=== PATIENT | male | born 2000 | race Caucasian/White ===

== ENCOUNTER 2025-06-26 19:21 | Inpatient (IN) ==
[2025-06-26] MEDS: SODIUM CHLORIDE 0.9% 1,000 ML IV SCH (19:41)
--- NOTE | 2025-06-26 19:43 | Emergency Department Note ---
Impression & Plan Acute hypotension, Diarrhea, Abdominal pain, Vomiting, Acidosis, lactic, Hypoxia ED Provider Note NAME: KYLER ALVARADO AGE: 24 SEX: M : 2000 ARRIVES VIA: Ambulance INFORMANT: Patient ED PROVIDER(S): Timmy Schaffer DO CHIEF COMPLAINT: Abdominal pain, nausea, vomiting HPI: Patient is a 24-year-old male who presents ER for periumbilical abdominal pain associate with nausea and vomiting. He notes this started just prior to arrival. He is having persistent diarrhea now. He notes when the vomiting started he started having chest pain as well shortness of breath. Denies any dysuria, urgency or frequency. No other exacerbating or remitting factors. Patient denies diabetes, hypertension, hyperlipidemia, CAD, history of sudden at a young age, and smoking. Patient denies swelling of calves, recent trips, history of immobilization or recent surgery, prior history of DVT, hemoptysis, and history of malignancy. ADDITIONAL HISTORY OBTAINED: Per HPI Chronic Medical/Social Conditions Affecting Care: Per HPI PAST MEDICAL HISTORY:See Below PAST SURGICAL HISTORY:See Below FAMILY HISTORY:See Below SOCIAL HISTORY:See Below HOME MEDICATIONS:See Below ALLERGIES:See Below VITALS:See Below PHYSICAL EXAMINATION: GENERAL: Sitting up in bed, alert, pale appearing, disheveled EYE EXAM: normal conjunctiva. OROPHARYNX: no exudate, no erythema, lips, buccal mucosa, and tongue normal and mucous membranes are moist NECK: supple, no nuchal rigidity, no adenopathy, non-tender LUNGS: Clear to auscultation. Normal chest wall mechanics HEART: no murmurs, S1 normal and S2 normal ABDOMEN: abdomen soft, non-tender, normo-active bowel sounds, no masses, no rebound or guarding. UPPER EXTREMITIES: upper extremities are grossly normal. Radial pulses are equal bilaterally LOWER EXTREMITIES: No pitting edema. Calves are equal bilaterally NEURO EXAM: Normal sensorium, cranial nerves II-XII grossly intact, normal speech, no gross weakness of arms, no gross weakness of legs. MEDICAL DECISION MAKING: Patient is a 24-year-old male who presents to the ER found to be hypotensive with systolic pressure of 80 and heart rate in the 130s. IV was established and blood work was obtained. Labs showed no significant leukocytosis or anemia. D- dimer was negative and BMP with a mild hypokalemia at 3.4 as well as a bicarb of 19 and a gap of 19. This is likely explained by the acidosis from the elevated lactic acid. LFTs and bilirubin was fairly unremarkable. Troponin was negative. Pro-Mickey 0.07. UA was clean. Patient dropped his pulse ox several times while in the ER. He was placed on 2 L nasal cannula. With the chest pain and shortness of breath although a negative D-dimer CT angio was obtained of the chest and was unremarkable. There is no overt signs of failure. He was given 3 L of IV fluids. I did give him a dose of IV Zosyn. On last reevaluation he did complain of diffuse muscle cramping and a CK was added on. I discussed case with the hospitalist for admission. Patient was seen evaluated by general surgery while here in the ER and they note they will reevaluate in the morning but do not believe that this is appendicitis at this time. Consults/Care Managements Discussions: Per [facility] Triage Nursing notes reviewed. Limited review of prior medical records performed Vital Signs: reviewed and remarkable for hypotension and tachycardia Differential diagnosis: Differential diagnoses includes but is not limited to gastritis, peptic ulcer disease, GERD, gallbladder disease, pancreatitis, small bowel obstruction, appendicitis, diverticulitis, hernia, urinary tract infection, torsion, [/ectopic (if female)], perforation, trauma, infectious. ER treatment provided: See below Diagnostics interpreted by me include EKG and cardiac monitoring as listed below: -Cardiac Monitoring: An order was placed for continuous cardiac monitoring. The monitor shows a rate of 120 with sinus rhythm. -ECG: Sinus tachycardia rate of 119 Normal axis No PVCs QTc 450 -Laboratory studies:Interpreted by me as stated above in MDM and shown below. Imaging studies: Xrays: As interpreted by me: Portable AP upright 1 view of the chest shows no focal infiltrate CTs show: CTA of the chest and abdomen pelvis showed air-fluid levels and a distended appendix but no inflammatory changes. Procedures:none Critical Care: I have personally spent 45 minutes of critical care time in the direct management of this patient. This includes bedside care, interpretation of diagnostic studies, and testing, discussion with consultants, patient, and family members, and other required patient management activities. This 45 minutes is in excess of all separately billable procedures. Past Med/Surg History Problem List (Updated 06/26/25 @ 23:24 by Timmy Schaffer DO) Hypoxia (Acute) Acidosis, lactic (Acute) Vomiting (Acute) Abdominal pain (Acute) Diarrhea (Acute) Acute hypotension (Acute) Social History Smoking Status: Never smoker Preferred Language: Kazakh Feels Safe at Home: Yes Allergies Allergies Allergy/AdvReac Type Severity Reaction Status Date / Time No Known Allergies Allergy Unverified 06/26/25 22:00 Home Meds Home Medications Medication Instructions Recorded Confirmed tirzepatide 10 mg/0.5 mL 5 mg subcut 2XWK 06/26/25 06/26/25 subcutaneous pen injector (Arminda) Results & Data (ED) Vital Signs Vital Signs - 24 hr 06/26/25 19:25 06/26/25 19:35 06/26/25 19:36 Temperature 36.7 C Temperature Source Temporal Artery Scan Pulse Rate 135 H 122 H 110 H Pulse Rate from SpO2 Sensor 113 H Respiratory Rate 16 18 Respiratory Effort / Characteristics Non-Labored Spontaneous Respiratory Depth Normal Respiratory Pattern Regular Blood Pressure 87/50 L 120/84 Blood Pressure Mean 62 96 Pulse Oximetry 98 100 Oxygen Delivery Method Room Air Sepsis Recent Fever Within 48 Hours No Sepsis New/Unexplained Change in Mental Status N/A Sepsis Action Taken by Nursing Physician Notified 06/26/25 20:00 06/26/25 20:03 06/26/25 20:24 Temperature Temperature Source Pulse Rate 96 H 102 H Pulse Rate from SpO2 Sensor 97 H 101 H Respiratory Rate 17 14 Respiratory Effort / Characteristics Respiratory Depth Respiratory Pattern Blood Pressure 109/71 106/78 Blood Pressure Mean 83 87 Pulse Oximetry 98 95 96 Oxygen Delivery Method Room Air Sepsis Recent Fever Within 48 Hours Sepsis New/Unexplained Change in Mental Status Sepsis Action Taken by Nursing 06/26/25 20:30 06/26/25 21:06 06/26/25 21:15 Temperature Temperature Source Pulse Rate 103 H 105 H Pulse Rate from SpO2 Sensor 99 H 104 H Respiratory Rate 14 16 Respiratory Effort / Characteristics Respiratory Depth Respiratory Pattern Blood Pressure 121/73 109/56 L 107/67 Blood Pressure Mean 81 65 76 Pulse Oximetry 100 97 Oxygen Delivery Method Sepsis Recent Fever Within 48 Hours Sepsis New/Unexplained Change in Mental Status Sepsis Action Taken by Nursing 06/26/25 21:30 06/26/25 21:51 Temperature Temperature Source Pulse Rate 106 H 108 H Pulse Rate from SpO2 Sensor 109 H 108 H Respiratory Rate 21 23 Respiratory Effort / Characteristics Respiratory Depth Respiratory Pattern Blood Pressure 103/55 L 94/62 L Blood Pressure Mean 71 73 Pulse Oximetry 95 95 Oxygen Delivery Method Sepsis Recent Fever Within 48 Hours Sepsis New/Unexplained Change in Mental Status Sepsis Action Taken by Nursing Laboratory Data 06/26/25 19:55 06/26/25 19:55 Lab Results 06/26/25 06/26/25 06/26/25 Range/Units 19:55 21:06 21:46 WBC 9.02 (4.8-10.8) K/ul RBC 5.41 (4.70-6.10) M/uL Hgb 15.4 (14.0-18.0) g/dl Hct 45.5 (42.0-52.0) % MCV 84.1 (80.0-100.0) fL MCH 28.5 (25.0-34.0) pg MCHC 33.8 (32.0-36.0) g/dL RDW Std Deviation 38.7 (36.4-46.3) fL RDW Coeff of French 12.7 (11.5-14.5) % Plt Count 175 (130-400) K/uL MPV 11.3 (9.4-12.4) fL Immature Gran % (Auto) 0.2 % Neut % (Auto) 84.1 % Lymph % (Auto) 7.4 % Roosevelt % (Auto) 6.1 % Eos % (Auto) 1.9 % Baso % (Auto) 0.3 % Neut # (Auto) 7.58 H (1.40-6.50) K/uL Lymph # (Auto) 0.67 L (1.20-3.40) K/uL Roosevelt # (Auto) 0.55 (0.11-0.59) K/uL Eos # (Auto) 0.17 (0.00-0.50) K/uL Baso # (Auto) 0.03 (0.00-0.20) K/uL Immature Gran # (Auto) 0.02 (0.01-0.20) K/uL D-Dimer 430 (0-500) ug/L FEU Sodium 137 (136-145) mmol/L Potassium 3.4 L (3.5-5.1) mmol/L Chloride 99 (98-107) mmol/L Carbon Dioxide 19 L (21-32) mmol/L Anion Gap 19 H (3-11) BUN 19 (6-23) mg/dl Creatinine 1.19 (0.6-1.4) mg/dl Est Cr Clr Drug Dosing 98.8 ml/min eGFR 87.48 BUN/Creatinine Ratio 16.0 (10-20) Glucose 121 H (70-99(Fasting)) mg/dl Lactate 4.3 H* 1.2 (0.4-2.0) mmol/L Calcium 9.6 (8.6-10.3) mg/dl Magnesium 1.3 L (1.7-2.4) mg/dl Total Bilirubin 1.8 H (0.2-1.0) mg/dl Direct Bilirubin 0.3 H (0-0.2) mg/dl AST 17 (13-39) U/L ALT 14 (7-52) U/L Alkaline Phosphatase 58 (34-104) U/L Troponin I High Sens 3.6 (0-20) pg/ml Total Protein 7.8 (6.0-8.3) gm/dl Albumin 4.6 (3.4-5.0) gm/dl Procalcitonin 0.07 (0-0.5) ng/ml Urine Color Yellow Urine Appearance Clear (Clear) Urine pH 5.5 (4.5-7.5) Ur Specific Bowlus 1.039 H (1.000-1.030) Urine Protein Negative (Negative) Urine Glucose (UA) Negative (Negative) Urine Ketones 2+ H (Negative) Urine Blood Negative (Negative) Urine Nitrite Negative (Negative) Urine Bilirubin Negative (Negative) Urine Urobilinogen Negative (Negative) Ur Leukocyte Esterase Negative (Negative) Urine Comment Administered Medications Discontinued Medications Sodium Chloride (Nss) 1,000 mls @ 999 mls/hr IV .Q1H1M PEREZ Stop: 06/26/25 21:45 Last Infusion: 06/26/25 22:20 Dose: Infused Documented By: Admin: 06/26/25 21:16 Dose: 999 mls/hr Documented By: Infusion: 06/26/25 20:42 Dose: Infused Documented By: Admin: 06/26/25 19:41 Dose: 999 mls/hr Documented By: BARBARA Sodium Chloride (Nss) 1,000 mls @ 999 mls/hr IV .Q1H1M ONE Stop: 06/26/25 22:54 Last Admin: 06/26/25 22:20 Dose: 999 mls/hr Documented By: CHRISTIAN Ioversol (Optiray 320 100ml) 93 ml IV ONCE ONE Stop: 06/26/25 20:43 Last Admin: 06/26/25 20:42 Dose: 93 ml Documented By: MAYTE Ioversol (Optiray 320 125ml) 120 ml IV ONCE ONE Stop: 06/26/25 22:40 Last Admin: 06/26/25 22:39 Dose: 120 ml Documented By: MAYTE Ondansetron HCl (Ondansetron Inj 2 Mg/Ml 2 Ml Vial) 4 mg IV NOW STA Stop: 06/26/25 22:18 Last Admin: 06/26/25 22:19 Dose: 4 mg Documented By: CHRISTIAN Imaging Data Radiologist's Impression: Abdomen/Pelvis CT 06/26/25 19:38 Exam(s): CT ABDOMEN + PELVIS With Contrast IV Amt: 93ml EXAM: CT Abdomen and Pelvis With Intravenous Contrast CLINICAL HISTORY: mid abd pain n/v. TECHNIQUE: Axial computed tomography images of the abdomen and pelvis with intravenous contrast. CTDI is 20.52 mGy and DLP is 1039.39 mGy-cm. Automated exposure control was utilized for the study. A dose lowering technique was utilized adhering to the principles of ALARA. CONTRAST: Patient received 93ml of IV contrast COMPARISON: No relevant prior studies available. FINDINGS: Lung bases: Unremarkable. No mass. No consolidation. ABDOMEN: Liver: Unremarkable. No mass. Gallbladder and bile ducts: Unremarkable. No calcified stones. No ductal dilation. Pancreas: Unremarkable. No mass. No ductal dilation. Spleen: Unremarkable. No splenomegaly. Adrenals: Unremarkable. No mass. Kidneys and ureters: Unremarkable. No solid mass. No hydronephrosis. Stomach and bowel: The stomach is mildly distended with fluid and gas. No gastric mucosal thickening. No evidence for focal high-grade bowel obstruction. Nonspecific fluid-filled small bowel loops in the pelvis without dilation. There is prominent fluid throughout the colon. No significant stool burden or colonic wall thickening. No diverticulitis. PELVIS: Appendix: There are appendicoliths noted in the proximal appendix with the largest measuring 7.8 mm diameter by 9.2 mm in length. Distal to the appendicolith, the appendix is borderline prominent in size, measuring 8 mm in diameter but there is gas throughout the distal appendix. No definite periappendiceal inflammatory changes. Bladder: Unremarkable. No mass. Reproductive: Unremarkable as visualized. ABDOMEN and PELVIS: Intraperitoneal space: Unremarkable. No free air. No significant fluid collection. Bones/joints: No acute fracture. No dislocation. Soft tissues: Unremarkable. Vasculature: Unremarkable. No abdominal aortic aneurysm. Lymph nodes: Unremarkable. No enlarged lymph nodes. IMPRESSION: 1. There are appendicoliths noted in the proximal appendix with the largest measuring 7.8 mm diameter by 9.2 mm in length. Distal to the appendicolith, the appendix is borderline prominent in size, measuring 8 mm in diameter but there is gas throughout the distal appendix. No definite periappendiceal inflammatory changes. The appearance is somewhat indeterminate. Subtle acute appendicitis is difficult to entirely exclude. Please correlate with clinical and laboratory findings. 2. No evidence for focal high-grade bowel obstruction. Nonspecific fluid-filled small bowel loops in the pelvis without dilation. There is prominent fluid throughout the colon. No significant stool burden or colonic wall thickening. No diverticulitis. The appearance suggests enterocolitis with possible diarrheal disease. Electronically signed by: Mt Murdock MD 06/26/25 21:48 PM Chest X-Ray 06/26/25 19:39 HISTORY: Sepsis TECHNIQUE: Portable AP radiograph of the chest. COMPARISON: None. FINDINGS: ekg monitor tech leads overlie the chest. No focal lung consolidation. No pneumothorax or pleural effusion. Normal heart size. Left-sided aortic arch. Midline trachea.No acute osseous abnormality. The included upper abdomen is unremarkable. IMPRESSION: No acute cardiopulmonary findings. Electronically signed by Kyler Paniagua 06-26-2025 8:35 PM Chest CTA 06/26/25 22:12 Exam(s): CTA CHEST IV Amt: 120ml EXAM: CT Chest With Intravenous Contrast CLINICAL HISTORY: hypoxic. TECHNIQUE: Axial computed tomographic images of the chest with intravenous contrast. CTDI is 18.42 mGy and DLP is 719 mGy-cm. Automated exposure control was utilized for the study. A dose lowering technique was utilized adhering to the principles of ALARA. COMPARISON: No relevant prior studies available. FINDINGS: Limitations: There is diffuse respiratory artifact, which degrades image quality throughout the examination. Pulmonary arteries: Accounting for limitations with diffuse respiratory artifact, there is no definite evidence for pulmonary embolism. Several distal subsegmental pulmonary artery segments are of limited to nondiagnostic quality. Aorta: No acute findings. No thoracic aortic aneurysm. Lungs: No focal airspace consolidation identified. Pleural space: Unremarkable. No significant effusion. No pneumothorax. Heart: Unremarkable. No cardiomegaly. No significant pericardial effusion. Bones/joints: No acute fracture. No dislocation. Soft tissues: Unremarkable. Lymph nodes: Unremarkable. No enlarged lymph nodes. IMPRESSION: 1. Accounting for limitations with diffuse respiratory artifact, there is no definite evidence for pulmonary embolism. Several distal subsegmental pulmonary artery segments are of limited to nondiagnostic quality. No 3D or MIP imaging provided. 2. No focal airspace consolidation identified. No pleural effusion or pneumothorax. Electronically signed by: Mt Murdock MD 06/26/25 23:06 PM Discharge Plan Visit Data Chief Complaint: GI Assessment Stated Complaint: N/V/D, SOB ED Provider: Timmy Schaffer Discharge Problem: Acute hypotension, Diarrhea, Abdominal pain, Vomiting, Acidosis, lactic, Hypoxia Condition: Serious Forms Stand Alone Forms: WalkMe Prescriptions Prescriptions: No Action Mounjaro 10 mg/0.5 mL Pen Injector 5 mg SUBCUT 2XWK Rx Instructions: Friday and Friday Referrals Referrals: PCP,NO [Primary Care Provider] - Discharge Problem: Diarrhea Qualifiers: Diarrhea type: unspecified type Qualified Code(s): R19.7 - Diarrhea, unspecified Abdominal pain Qualifiers: Abdominal location: unspecified location Qualified Code(s): R10.9 - Unspecified abdominal pain Vomiting Qualifiers: Vomiting type: unspecified Nausea presence: unspecified Qualified Code(s): R 11.10 - Vomiting, unspecified
[2025-06-26 20:10] LABS: Hematocrit (blood only) 45.5 % (42.0-52.0); Hemoglobin 15.4 g/dl (14.0-18.0); Immature Granulocytes # (auto) 0.02 K/uL (0.01-0.20); Immature Granulocytes % (auto) 0.2 %; Mean Corpuscular Hemoglobin 28.5 pg (25.0-34.0); Mean Corpuscular Volume 84.1 fL (80.0-100.0); Platelet Count 175 K/uL (130-400); RDW Standard Deviation 38.7 fL (36.4-46.3); Red Blood Count 5.41 M/uL (4.70-6.10); White Blood Count 9.02 K/ul (4.8-10.8)
[2025-06-26 20:27] LABS: Alanine Aminotransferase 14.0 U/L (7-52); Alkaline Phosphatase 58.0 U/L (34-104); Anion Gap 19.0 (3-11); Bilirubin,Total 1.8 mg/dl (0.2-1.0); Blood Urea Nitrogen 19.0 mg/dl (6-23); Calcium 9.6 mg/dl (8.6-10.3); Carbon Dioxide 19.0 mmol/L (21-32); Chloride 99.0 mmol/L (98-107); Creatinine Clr Calc Pharmacy 98.8 ml/min; Glucose 121.0 mg/dl (70-99(Fasting)); Magnesium 1.3 mg/dl (1.7-2.4); Potassium 3.4 mmol/L (3.5-5.1); Sodium 137.0 mmol/L (136-145); Total Protein 7.8 gm/dl (6.0-8.3)
--- NOTE | 2025-06-26 20:35 | XRay Report ---
HISTORY: Sepsis TECHNIQUE: Portable AP radiograph of the chest. COMPARISON: None. FINDINGS: residential monitor leads overlie the chest. No focal lung consolidation. No pneumothorax or pleural effusion. Normal heart size. Left-sided aortic arch. Midline trachea.No acute osseous abnormality. The included upper abdomen is unremarkable. IMPRESSION: No acute cardiopulmonary findings. Electronically signed by Bennett Paniagua 06-26-2025 8:35 PM
[2025-06-26] MEDS: OPTIRAY 320 100ml IV ONE (20:42)
[2025-06-26 21:21] LABS: Appearance Urine Clear (Clear); Glucose Urine UA Negative (Negative)
--- NOTE | 2025-06-26 21:49 | CT Scan Report ---
Exam(s): CT ABDOMEN + PELVIS With Contrast IV Amt: 93ml EXAM: CT Abdomen and Pelvis With Intravenous Contrast CLINICAL HISTORY: mid abd pain n/v. TECHNIQUE: Axial computed tomography images of the abdomen and pelvis with intravenous contrast. CTDI is 20.52 mGy and DLP is 1039.39 mGy-cm. Automated exposure control was utilized for the study. A dose lowering technique was utilized adhering to the principles of ALARA. CONTRAST: Patient received 93ml of IV contrast COMPARISON: No relevant prior studies available. FINDINGS: Lung bases: Unremarkable. No mass. No consolidation. ABDOMEN: Liver: Unremarkable. No mass. Gallbladder and bile ducts: Unremarkable. No calcified stones. No ductal dilation. Pancreas: Unremarkable. No mass. No ductal dilation. Spleen: Unremarkable. No splenomegaly. Adrenals: Unremarkable. No mass. Kidneys and ureters: Unremarkable. No solid mass. No hydronephrosis. Stomach and bowel: The stomach is mildly distended with fluid and gas. No gastric mucosal thickening. No evidence for focal high-grade bowel obstruction. Nonspecific fluid-filled small bowel loops in the pelvis without dilation. There is prominent fluid throughout the colon. No significant stool burden or colonic wall thickening. No diverticulitis. PELVIS: Appendix: There are appendicoliths noted in the proximal appendix with the largest measuring 7.8 mm diameter by 9.2 mm in length. Distal to the appendicolith, the appendix is borderline prominent in size, measuring 8 mm in diameter but there is gas throughout the distal appendix. No definite periappendiceal inflammatory changes. Bladder: Unremarkable. No mass. Reproductive: Unremarkable as visualized. ABDOMEN and PELVIS: Intraperitoneal space: Unremarkable. No free air. No significant fluid collection. Bones/joints: No acute fracture. No dislocation. Soft tissues: Unremarkable. Vasculature: Unremarkable. No abdominal aortic aneurysm. Lymph nodes: Unremarkable. No enlarged lymph nodes. IMPRESSION: 1. There are appendicoliths noted in the proximal appendix with the largest measuring 7.8 mm diameter by 9.2 mm in length. Distal to the appendicolith, the appendix is borderline prominent in size, measuring 8 mm in diameter but there is gas throughout the distal appendix. No definite periappendiceal inflammatory changes. The appearance is somewhat indeterminate. Subtle acute appendicitis is difficult to entirely exclude. Please correlate with clinical and laboratory findings. 2. No evidence for focal high-grade bowel obstruction. Nonspecific fluid-filled small bowel loops in the pelvis without dilation. There is prominent fluid throughout the colon. No significant stool burden or colonic wall thickening. No diverticulitis. The appearance suggests enterocolitis with possible diarrheal disease. Electronically signed by: Mt Murdock MD 06/26/25 21:48 PM
[2025-06-26] MEDS: ONDANSETRON INJ 2 MG/ML 2 ML VIAL IV STA (22:19)
[2025-06-26] MEDS: SODIUM CHLORIDE 0.9% 1,000 ML IV ONE (22:20)
[2025-06-26] MEDS: OPTIRAY 320 125ml IV ONE (22:39)
--- NOTE | 2025-06-26 22:49 | Surgery Consultation ---
Date of Consultation June 26, 2025 Assessment & Plan (1) Sepsis: Patient presented to the emergency department with complains of acute onset of abdominal pain, nausea, vomiting, and diarrhea. Initial presentation the patient was tachycardic with HR in the 130s and hypotensive and was given fluid resuscitation. Initial lactic acid was 4.3 and repeat is 1.2 and he also was noted to have oxygen desaturation into the 70's and was placed on supplemental O2. The patient underwent CT imaging with findings concerning for possible early appendicitis along with prominent fluid throughout the colon, suggestive of enterocolitis. Patient was seen and evaluated and from a surgical perspective recommend the following: -Patient will be admitted to the medical service for observation -Keep NPO, continue fluid resuscitation -Stool cultures -WBC wnl, he did receive a dose of IV Zosyn in the ER, would recommend holding additional abx and evaluate WBC in the morning. -Discussed with patient if his symptoms persist he may require surgical intervention for appendectomy. Will discuss patient's case with attending surgeon, Dr. Orr, and final surgical recommendations to follow (2) Abdominal pain: (3) Hypoxia: (4) Diarrhea: History of Present Illness Reason for Consultation: abdominal pain History of Present Illness Patient is a 24-year-old male who presented to the emergency department with onset onset of abdominal pain, nausea, vomiting, and diarrhea. The patient states around 5PM he felt some abdominal discomfort in his periumbilical region and felt like he needed to have a bowel movement and states he started with diarrhea. Shortly afterwards he started with nausea and vomiting. Patient also states he had chest pain and shortness of breath which ultimately prompted him to call an ambulance and came to the ER for further evaluation. At the time of arrival to the ER the patient was tachycardic with HR in the 130s and hypotensive and was given fluid resuscitation. Initial lactic acid was 4.3 and repeat is 1.2 and he also was noted to have oxygen desaturation into the 70's and was placed on supplemental O2. The patient underwent CT imaging with findings concerning for appendicoliths with the appendix measuring 8mm along with prominent fluid throughout the colon, suggestive of enterocolitis. The patient was seen and evaluated in the emergency department this evening. Patient currently is finishing his third fluid bolus and HR still in the 110s however BP has improved. The patient states that he is not having much abdominal pain however continues to feel sick to his stomach and nauseous. On exam patient is slightly tender in the mid abdomen however currently no signs of peritonitis. He denies any medical issues but does take Munjaro for weight loss. Patient denies any previous abdominal surgeries. Allergies Allergy/AdvReac Type Severity Reaction Status Date / Time No Known Allergies Allergy Unverified 06/26/25 22:00 Home Medications Medication Instructions Recorded Confirmed Type tirzepatide 10 mg/0.5 mL 5 mg subcut 2XWK 06/26/25 06/26/25 History subcutaneous pen injector (Mounjaro) Patient History Social History Smoking Status: Never smoker Hx Alcohol Use: No Hx Substance Use: No Preferred Language: Persian Strategic Planning Manager Required: No Beliefs That Will Affect Care: None Current Living Situation: Alone Feels Safe at Home: Yes Safety Concerns: Feels Safe At This Time Assistive Devices: None Review of Systems Constitutional: no body aches and no weakness Respiratory: as per Subjective / HPI Cardiovascular: + chest pain Gastrointestinal: + abdominal pain, + nausea, + vomiting a nd + diarrhea/loose stools Genitourinary: no difficulty urinating or no hematuria Physical Exam Constitutional: cooperative; no acute distress and not in distress Respiratory: normal respiratory effort, lungs clear to auscultation Cardiovascular: Rate/Rhythm: + tachycardic Gastrointestinal (Abdomen): Abdomen soft, nondistended, +mild TTP in periumbilical area, no rebound or signs of peritonitis Skin: no rashes, warm and dry Results & Data Vital Signs (Past 12 Hours) Vital Signs Temp Pulse Resp BP Pulse Ox O2 Del Method 06/26/25 21:51 108 H 23 94/62 L 95 06/26/25 21:30 106 H 21 103/55 L 95 06/26/25 21:15 107/67 06/26/25 21:06 105 H 16 109/56 L 97 06/26/25 20:30 103 H 14 121/73 100 06/26/25 20:24 102 H 14 106/78 96 06/26/25 20:03 96 H 17 109/71 95 06/26/25 20:00 98 Room Air 06/26/25 19:36 110 H 18 120/84 100 06/26/25 19:35 122 H 06/26/25 19:25 36.7 C 135 H 16 87/50 L 98 Room Air Diagnostic Findings Exam(s): CT ABDOMEN + PELVIS With Contrast IV Amt: 93ml EXAM: CT Abdomen and Pelvis With Intravenous Contrast CLINICAL HISTORY: mid abd pain n/v. TECHNIQUE: Axial computed tomography images of the abdomen and pelvis with intravenous contrast. CTDI is 20.52 mGy and DLP is 1039.39 mGy-cm. Automated exposure control was utilized for the study. A dose lowering technique was utilized adhering to the principles of ALARA. CONTRAST: Patient received 93ml of IV contrast COMPARISON: No relevant prior studies available. FINDINGS: Lung bases: Unremarkable. No mass. No consolidation. ABDOMEN: Liver: Unremarkable. No mass. Gallbladder and bile ducts: Unremarkable. No calcified stones. No ductal dilation. Pancreas: Unremarkable. No mass. No ductal dilation. Spleen: Unremarkable. No splenomegaly. Adrenals: Unremarkable. No mass. Kidneys and ureters: Unremarkable. No solid mass. No hydronephrosis. Stomach and bowel: The stomach is mildly distended with fluid and gas. No gastric mucosal thickening. No evidence for focal high-grade bowel obstruction. Nonspecific fluid-filled small bowel loops in the pelvis without dilation. There is prominent fluid throughout the colon. No significant stool burden or colonic wall thickening. No diverticulitis. PELVIS: Appendix: There are appendicoliths noted in the proximal appendix with the largest measuring 7.8 mm diameter by 9.2 mm in length. Distal to the appendicolith, the appendix is borderline prominent in size, measuring 8 mm in diameter but there is gas throughout the distal appendix. No definite periappendiceal inflammatory changes. Bladder: Unremarkable. No mass. Reproductive: Unremarkable as visualized. ABDOMEN and PELVIS: Intraperitoneal space: Unremarkable. No free air. No significant fluid collection. Bones/joints: No acute fracture. No dislocation. Soft tissues: Unremarkable. Vasculature: Unremarkable. No abdominal aortic aneurysm. Lymph nodes: Unremarkable. No enlarged lymph nodes. IMPRESSION: 1. There are appendicoliths noted in the proximal appendix with the largest measuring 7.8 mm diameter by 9.2 mm in length. Distal to the appendicolith, the appendix is borderline prominent in size, measuring 8 mm in diameter but there is gas throughout the distal appendix. No definite periappendiceal inflammatory changes. The appearance is somewhat indeterminate. Subtle acute appendicitis is difficult to entirely exclude. Please correlate with clinical and laboratory findings. 2. No evidence for focal high-grade bowel obstruction. Nonspecific fluid-filled small bowel loops in the pelvis without dilation. There is prominent fluid throughout the colon. No significant stool burden or colonic wall thickening. No diverticulitis. The appearance suggests enterocolitis with possible diarrheal disease. PG Care Time/CCT Total # of Minutes Spent Total Time Spent with Patient: Total time spent is greater than 50% in coordination of care (as documented) at patient's floor/unit and/or counseling patient: [place] [address] Office/OBS Consult Lvl 1 Patient Type New History Problem Focused Medical Decision Making Straight Forward Diagnoses Sepsis A41.9 Abdominal pain R10.9 Abdominal location: unspecified location Hypoxia R09.02 Diarrhea R19.7 Diarrhea type: unspecified type (2) Abdominal pain Abdominal location: unspecified location Qualified Code(s): R10.9 - Unspecified abdominal pain (4) Diarrhea Diarrhea type: unspecified type Qualified Code(s): R19.7 - Diarrhea, unspecified
--- NOTE | 2025-06-26 23:08 | CT Scan Report ---
Exam(s): CTA CHEST IV Amt: 120ml EXAM: CT Chest With Intravenous Contrast CLINICAL HISTORY: hypoxic. TECHNIQUE: Axial computed tomographic images of the chest with intravenous contrast. CTDI is 18.42 mGy and DLP is 719 mGy-cm. Automated exposure control was utilized for the study. A dose lowering technique was utilized adhering to the principles of ALARA. COMPARISON: No relevant prior studies available. FINDINGS: Limitations: There is diffuse respiratory artifact, which degrades image quality throughout the examination. Pulmonary arteries: Accounting for limitations with diffuse respiratory artifact, there is no definite evidence for pulmonary embolism. Several distal subsegmental pulmonary artery segments are of limited to nondiagnostic quality. Aorta: No acute findings. No thoracic aortic aneurysm. Lungs: No focal airspace consolidation identified. Pleural space: Unremarkable. No significant effusion. No pneumothorax. Heart: Unremarkable. No cardiomegaly. No significant pericardial effusion. Bones/joints: No acute fracture. No dislocation. Soft tissues: Unremarkable. Lymph nodes: Unremarkable. No enlarged lymph nodes. IMPRESSION: 1. Accounting for limitations with diffuse respiratory artifact, there is no definite evidence for pulmonary embolism. Several distal subsegmental pulmonary artery segments are of limited to nondiagnostic quality. No 3D or MIP imaging provided. 2. No focal airspace consolidation identified. No pleural effusion or pneumothorax. Electronically signed by: Mt Murdock MD 06/26/25 23:06 PM
[2025-06-26] MEDS: ACETAMINOPHEN 1,000 MG/100 ML VIAL IV STA (23:21)
[2025-06-26] MEDS: MAGNESIUM SULFATE / D5W 1 GM/100 ML BAG IV SCH (23:21)
[2025-06-26] MEDS: POTASSIUM CHLORIDE / WTR 10 MEQ/100 ML PLCT IV SCH (23:21)
[2025-06-26] MEDS: PIPERACILLIN/TAZOBACTAM 4.5 GM/100 ML BAG IV ONE (23:23)
[2025-06-26] MEDS: ONDANSETRON INJ 2 MG/ML 2 ML VIAL ONE (23:23)
[2025-06-26 23:24] LABS: Creatine Kinase 109.0 U/L (30-223)
--- NOTE | 2025-06-26 23:32 | History & Physical Report ---
Date of Service June 26, 2025 Assessment & Plan (1) Sepsis: Plan: 24-year-old male with no significant past medical history on Mounjaro since about a year for obesity comes in because of nausea vomiting and diarrhea and abdominal pain. Seems around 5 PM started to have abdominal discomfort and had diarrhea and couple of episodes of vomiting. Patient states diarrhea since then subsided. Thinks he might have had fever. Currently having a lot of cramps and tightness in the abdomen. Currently denies any chest pain. Earlier he complained of some chest pain to the ER. States he is feeling short of breath. He was hypoxic and requiring oxygen in the ER initially. Was tachycardic with heart rates in 130s on presentation and systolic blood pressure was in 80s. Received 2 L of fluids. IV Zosyn was ordered. Initial lactic acid was 4.3 and repeat is 1.2. Patient is restless and tachycardic. He says he feels tight and asking for something to relax his muscles. Feeling crampy. Denies any headache. No earache or runny nose or sore throat. No cough. Micturating okay. Denies any rash. Sepsis Presents with tachycardia, hypotension, lactic acid 4.3 Repeat lactic acid is 1.2 UA is negative. CTA chest respiratory artifact but no acute findings CT abdomen pelvis with IV contrast subtle acute appendicitis is difficult to exclude. Enterocolitis with possible diarrheal disease Received aggressive fluids Continue IV normal saline at 150 mL/h, IV Zosyn for now. Follow stool cultures IV Tylenol as needed Will follow repeat LFTs Surgery on board and appreciate inputs Close monitoring telemetry Hypoxia Mostly from above CTA chest seems unremarkable Close monitor Hypomagnesia and hypokalemia Will replace DVT prophylaxis SCDs for now Disposition Close monitoring telemetry Full code History of Present Illness Chief Complaint: Nausea /vomiting and diarrhea and abdominal pain Primary Care Provider: NO PCP 24-year-old male with no significant past medical history on Mounjaro since about a year for obesity comes in because of nausea vomiting and diarrhea and abdominal pain. Seems around 5 PM started to have abdominal discomfort and had diarrhea and couple of episodes of vomiting. Patient states diarrhea since then subsided. Thinks he might have had fever. Currently having a lot of cramps and tightness in the abdomen. Currently denies any chest pain. Earlier he complained of some chest pain to the ER. States he is feeling short of breath. He was hypoxic and requiring oxygen in the ER initially. Was tachycardic with heart rates in 130s on presentation and systolic blood pressure was in 80s. Received 2 L of fluids. IV Zosyn was ordered. Initial lactic acid was 4.3 and repeat is 1.2. Patient is restless and tachycardic. He says he feels tight and asking for something to relax his muscles. Feeling crampy. Denies any headache. No earache or runny nose or sore throat. No cough. Micturating okay. Denies any rash. Past medical history. As mentioned above. Past surgical history. Denies any surgeries. Social history. No smoking. No alcohol. No drug use. Family. Father had appendicitis. Denies any family history of heart disease or cancer. Allergies Allergy/AdvReac Type Severity Reaction Status Date / Time No Known Allergies Allergy Unverified 06/26/25 22:00 Home Medications Medication Instructions Recorded Confirmed Type tirzepatide 10 mg/0.5 mL 5 mg subcut 2XWK 06/26/25 06/26/25 History subcutaneous pen injector (Mounjaro) Past Med/Surg History Problem List (Updated 06/26/25 @ 23:38 by Dylan Wilks MD) Sepsis Hypoxia (Acute) Acidosis, lactic (Acute) Vomiting (Acute) Abdominal pain (Acute) Diarrhea (Acute) Acute hypotension (Acute) Social History Smoking Status: Never smoker Hx Alcohol Use: No Hx Substance Use: No Preferred Language: Estonian Instructional Technology Facilitator Required: No Beliefs That Will Affect Care: None Current Living Situation: Alone Feels Safe at Home: Yes Safety Concerns: Feels Safe At This Time Assistive Devices: None Review of Systems Review of Systems: All systems reviewed & are unremarkable except as noted in HPI & below Physical Exam Physical Exam: General- Restless. Head- atraumatic Eyes- PERRL. ENT- oropharynx clear Neck- supple, no JVD. Lungs- clear to auscultation no wheezing or crackles Heart- regular rhythm;tachycardia no murmur, no gallop. Abdomen- normal bowel sounds, soft, periumbilical tenderness, guarding present, no rebound tenderness, no distension Extremities- no pretibial edema, no erythema seen Neuro- alert, oriented PERRL, no facial palsy; no dysarthria; moves extremities Results & Data Results & Data Vital Signs (Past 12 Hours) Vital Signs Temp Pulse Resp BP Pulse Ox O2 Del Method 06/26/25 23:29 119 H 06/26/25 21:51 108 H 23 94/62 L 95 06/26/25 21:30 106 H 21 103/55 L 95 06/26/25 21:15 107/67 06/26/25 21:06 105 H 16 109/56 L 97 06/26/25 20:30 103 H 14 121/73 100 06/26/25 20:24 102 H 14 106/78 96 06/26/25 20:03 96 H 17 109/71 95 06/26/25 20:00 98 Room Air 06/26/25 19:36 110 H 18 120/84 100 06/26/25 19:35 122 H 06/26/25 19:25 36.7 C 135 H 16 87/50 L 98 Room Air Diagnostic Findings Laboratory Results WBC 9.02 K/ul (4.8-10.8) 06/26/25 19:55 RBC 5.41 M/uL (4.70-6.10) 06/26/25 19:55 Hgb 15.4 g/dl (14.0-18.0) 06/26/25 19:55 Hct 45.5 % (42.0-52.0) 06/26/25 19:55 MCV 84.1 fL (80.0-100.0) 06/26/25 19:55 MCH 28.5 pg (25.0-34.0) 06/26/25 19:55 MCHC 33.8 g/dL (32.0-36.0) 06/26/25 19:55 RDW Std Deviation 38.7 fL (36.4-46.3) 06/26/25 19:55 RDW Coeff of French 12.7 % (11.5-14.5) 06/26/25 19:55 Plt Count 175 K/uL (130-400) 06/26/25 19:55 MPV 11.3 fL (9.4-12.4) 06/26/25 19:55 Immature Gran % (Auto) 0.2 % 06/26/25 19:55 Neut % (Auto) 84.1 % 06/26/25 19:55 Lymph % (Auto) 7.4 % 06/26/25 19:55 [place] % (Auto) 6.1 % 06/26/25 19:55 Eos % (Auto) 1.9 % 06/26/25 19:55 Baso % (Auto) 0.3 % 06/26/25 19:55 Neut # (Auto) 7.58 K/uL (1.40-6.50) H 06/26/25 19:55 Lymph # (Auto) 0.67 K/uL (1.20-3.40) L 06/26/25 19:55 Crook # (Auto) 0.55 K/uL (0.11-0.59) 06/26/25 19:55 Eos # (Auto) 0.17 K/uL (0.00-0.50) 06/26/25 19:55 Baso # (Auto) 0.03 K/uL (0.00-0.20) 06/26/25 19:55 Immature Gran # (Auto) 0.02 K/uL (0.01-0.20) 06/26/25 19:55 D-Dimer 430 ug/L FEU (0-500) 06/26/25 19:55 Sodium 137 mmol/L (136-145) 06/26/25 19:55 Potassium 3.4 mmol/L (3.5-5.1) L 06/26/25 19:55 Chloride 99 mmol/L (98-107) 06/26/25 19:55 Carbon Dioxide 19 mmol/L (21-32) L 06/26/25 19:55 Anion Gap 19 (3-11) H 06/26/25 19:55 BUN 19 mg/dl (6-23) 06/26/25 19:55 Creatinine 1.19 mg/dl (0.6-1.4) 06/26/25 19:55 Est Cr Clr Drug Dosing 98.8 ml/min 06/26/25 19:55 eGFR 87.48 06/26/25 19:55 BUN/Creatinine Ratio 16.0 (10-20) 06/26/25 19:55 Glucose 121 mg/dl (70-99(Fasting)) H 06/26/25 19:55 Lactate 1.2 mmol/L (0.4-2.0) 06/26/25 21:46 Calcium 9.6 mg/dl (8.6-10.3) 06/26/25 19:55 Magnesium 1.3 mg/dl (1.7-2.4) L 06/26/25 19:55 Total Bilirubin 1.8 mg/dl (0.2-1.0) H 06/26/25 19:55 Direct Bilirubin 0.3 mg/dl (0-0.2) H 06/26/25 19:55 AST 17 U/L (13-39) 06/26/25 19:55 ALT 14 U/L (7-52) 06/26/25 19:55 Alkaline Phosphatase 58 U/L (34-104) 06/26/25 19:55 Total Creatine Kinase 109 U/L (30-223) 06/26/25 19:55 Troponin I High Sens 3.6 pg/ml (0-20) 06/26/25 19:55 Total Protein 7.8 gm/dl (6.0-8.3) 06/26/25 19:55 Albumin 4.6 gm/dl (3.4-5.0) 06/26/25 19:55 Procalcitonin 0.07 ng/ml (0-0.5) 06/26/25 19:55 Urine Color Yellow 06/26/25 21:06 Urine Appearance Clear (Clear) 06/26/25 21:06 Urine pH 5.5 (4.5-7.5) 06/26/25 21:06 Ur Specific [place] 1.039 (1.000-1.030) H 06/26/25 21:06 Urine Protein Negative (Negative) 06/26/25 21:06 Urine Glucose (UA) Negative (Negative) 06/26/25 21:06 Urine Ketones 2+ (Negative) H 06/26/25 21:06 Urine Blood Negative (Negative) 06/26/25 21:06 Urine Nitrite Negative (Negative) 06/26/25 21:06 Urine Bilirubin Negative (Negative) 06/26/25 21:06 Urine Urobilinogen Negative (Negative) 06/26/25 21:06 Ur Leukocyte Esterase Negative (Negative) 06/26/25 21:06 Urine Comment 06/26/25 21:06 Impressions Abdomen/Pelvis CT 06/26/25 19:38 Exam(s): CT ABDOMEN + PELVIS With Contrast IV Amt: 93ml EXAM: CT Abdomen and Pelvis With Intravenous Contrast CLINICAL HISTORY: mid abd pain n/v. TECHNIQUE: Axial computed tomography images of the abdomen and pelvis with intravenous contrast. CTDI is 20.52 mGy and DLP is 1039.39 mGy-cm. Automated exposure control was utilized for the study. A dose lowering technique was utilized adhering to the principles of ALARA. CONTRAST: Patient received 93ml of IV contrast COMPARISON: No relevant prior studies available. FINDINGS: Lung bases: Unremarkable. No mass. No consolidation. ABDOMEN: Liver: Unremarkable. No mass. Gallbladder and bile ducts: Unremarkable. No calcified stones. No ductal dilation. Pancreas: Unremarkable. No mass. No ductal dilation. Spleen: Unremarkable. No splenomegaly. Adrenals: Unremarkable. No mass. Kidneys and ureters: Unremarkable. No solid mass. No hydronephrosis. Stomach and bowel: The stomach is mildly distended with fluid and gas. No gastric mucosal thickening. No evidence for focal high-grade bowel obstruction. Nonspecific fluid-filled small bowel loops in the pelvis without dilation. There is prominent fluid throughout the colon. No significant stool burden or colonic wall thickening. No diverticulitis. PELVIS: Appendix: There are appendicoliths noted in the proximal appendix with the largest measuring 7.8 mm diameter by 9.2 mm in length. Distal to the appendicolith, the appendix is borderline prominent in size, measuring 8 mm in diameter but there is gas throughout the distal appendix. No definite periappendiceal inflammatory changes. Bladder: Unremarkable. No mass. Reproductive: Unremarkable as visualized. ABDOMEN and PELVIS: Intraperitoneal space: Unremarkable. No free air. No significant fluid collection. Bones/joints: No acute fracture. No dislocation. Soft tissues: Unremarkable. Vasculature: Unremarkable. No abdominal aortic aneurysm. Lymph nodes: Unremarkable. No enlarged lymph nodes. IMPRESSION: 1. There are appendicoliths noted in the proximal appendix with the largest measuring 7.8 mm diameter by 9.2 mm in length. Distal to the appendicolith, the appendix is borderline prominent in size, measuring 8 mm in diameter but there is gas throughout the distal appendix. No definite periappendiceal inflammatory changes. The appearance is somewhat indeterminate. Subtle acute appendicitis is difficult to entirely exclude. Please correlate with clinical and laboratory findings. 2. No evidence for focal high-grade bowel obstruction. Nonspecific fluid-filled small bowel loops in the pelvis without dilation. There is prominent fluid throughout the colon. No significant stool burden or colonic wall thickening. No diverticulitis. The appearance suggests enterocolitis with possible diarrheal disease. Electronically signed by: Mt Murdock MD 06/26/25 21:48 PM Chest X-Ray 06/26/25 19:39 HISTORY: Sepsis TECHNIQUE: Portable AP radiograph of the chest. COMPARISON: None. FINDINGS: quality assurance monitor leads overlie the chest. No focal lung consolidation. No pneumothorax or pleural effusion. Normal heart size. Left-sided aortic arch. Midline trachea.No acute osseous abnormality. The included upper abdomen is unremarkable. IMPRESSION: No acute cardiopulmonary findings. Electronically signed by SivaBennett 06-26-2025 8:35 PM Chest CTA 06/26/25 22:12 Exam(s): CTA CHEST IV Amt: 120ml EXAM: CT Chest With Intravenous Contrast CLINICAL HISTORY: hypoxic. TECHNIQUE: Axial computed tomographic images of the chest with intravenous contrast. CTDI is 18.42 mGy and DLP is 719 mGy-cm. Automated exposure control was utilized for the study. A dose lowering technique was utilized adhering to the principles of ALARA. COMPARISON: No relevant prior studies available. FINDINGS: Limitations: There is diffuse respiratory artifact, which degrades image quality throughout the examination. Pulmonary arteries: Accounting for limitations with diffuse respiratory artifact, there is no definite evidence for pulmonary embolism. Several distal subsegmental pulmonary artery segments are of limited to nondiagnostic quality. Aorta: No acute findings. No thoracic aortic aneurysm. Lungs: No focal airspace consolidation identified. Pleural space: Unremarkable. No significant effusion. No pneumothorax. Heart: Unremarkable. No cardiomegaly. No significant pericardial effusion. Bones/joints: No acute fracture. No dislocation. Soft tissues: Unremarkable. Lymph nodes: Unremarkable. No enlarged lymph nodes. IMPRESSION: 1. Accounting for limitations with diffuse respiratory artifact, there is no definite evidence for pulmonary embolism. Several distal subsegmental pulmonary artery segments are of limited to nondiagnostic quality. No 3D or MIP imaging provided. 2. No focal airspace consolidation identified. No pleural effusion or pneumothorax. Electronically signed by: Mt Murdock MD 06/26/25 23:06 PM Code Status & VTE Plan VTE Prophylaxis Plan VTE Prophylaxis will be ordered: Yes
[2025-06-26 23:51] LABS: Base Excess VBG -2.7 mEq/L; HCO3 VBG 21 mmol/L; Oxygen Saturation VBG < 60.0 %; PCO2 VBG 31 mmHg (38-50); PO2 VBG 25 mmHg; pH VBG 7.43 (7.36-7.41)
[2025-06-27] MEDS ORDERED: ACETAMINOPHEN 1,000 MG/100 ML VIAL IV PRN (00:45)
[2025-06-27] MEDS ORDERED: ONDANSETRON INJ 2 MG/ML 2 ML VIAL IV PRN (00:45)
[2025-06-27 01:11] VITALS: RESP 18
[2025-06-27] MEDS: SODIUM CHLORIDE 0.9% 1,000 ML IV SCH (01:16)
[2025-06-27] MEDS: PIPERACILLIN/TAZOBACTAM 4.5 GM/100 ML BAG IV SCH (05:35)
[2025-06-27 05:47] LABS: Hematocrit (blood only) 39.2 % (42.0-52.0); Hemoglobin 13.3 g/dl (14.0-18.0); Immature Granulocytes # (auto) 0.03 K/uL (0.01-0.20); Immature Granulocytes % (auto) 0.4 %; Mean Corpuscular Hemoglobin 28.7 pg (25.0-34.0); Mean Corpuscular Volume 84.5 fL (80.0-100.0); Platelet Count 137 K/uL (130-400); RDW Standard Deviation 39.5 fL (36.4-46.3); Red Blood Count 4.64 M/uL (4.70-6.10); White Blood Count 8.32 K/ul (4.8-10.8)
[2025-06-27 06:04] LABS: Alanine Aminotransferase 10.0 U/L (7-52); Alkaline Phosphatase 40.0 U/L (34-104); Anion Gap 3.0 (3-11); Bilirubin,Total 1.3 mg/dl (0.2-1.0); Blood Urea Nitrogen 13.0 mg/dl (6-23); Calcium 8.3 mg/dl (8.6-10.3); Carbon Dioxide 25.0 mmol/L (21-32); Chloride 109.0 mmol/L (98-107); Creatinine Clr Calc Pharmacy 103.7 ml/min; Glucose 94.0 mg/dl (70-99(Fasting)); Magnesium 2.5 mg/dl (1.7-2.4); Potassium 4.4 mmol/L (3.5-5.1); Sodium 137.0 mmol/L (136-145); Total Protein 6.0 gm/dl (6.0-8.3)
[2025-06-27 09:44] LABS: Adenovirus F 40/41 PCR Not Detected (NotDetected); Campylobacter PCR Not Detected (NotDetected); Enteroaggregative E.coli(EAEC) Not Detected (NotDetected); Shiga-like Toxin E.coli (STEC) Not Detected (NotDetected); Vibrio species PCR Not Detected (NotDetected)
--- NOTE | 2025-06-27 10:08 | Surgery Progress Note ---
Date of Service June 27, 2025 Assessment & Plan (1) Abdominal pain: (2) Diarrhea: (3) Vomiting: (4) Norovirus: Plan 24 yo male with nausea, vomiting, and diarrhea with enterocolitis on ct scan and appendicolith with no periappendiceal inflammation. Stool studies this am + Norovirus. Negative Mcburney's point or Turner sign on examination. Abdomen soft, nondistended, tender in bilateral lower quadrants but no peritonitis, rigidity, guarding, rebound. Symptoms likely secondary to enteritis due to norovirus. No surgical indication for appendectomy at this time. Continue medical management. Our services signing off, call with questions/concerns. Discussed with Dr. Lepe who agrees with above. Admission and Anticipated Discharge Date Admission Date: June 26, 2025 Subjective feeling better than yesterday, generalized whole body cramping has resolved no severe sharp abdominal pain soft loose stool, sent for lab this morning no n,v no fevers, chills and sweats last night Physical Exam Constitutional: WD/WN, vitals as above cooperative and comfortable; no acute distress and not ill appearing Respiratory: normal respiratory effort; no respiratory distress Gastrointestinal (Abdomen): Inspection/Auscultation: abdomen normal to inspection; abdomen not distended Percussion/Palpation: + abdomen tender (mild in bilateral lower quadrants, negative turner's or mcburneys point) and abdomen soft; no guarding, abdomen not rigid and abdomen not firm Skin: no rashes, warm and dry Psychiatric: Orientation: alert and oriented x 3 Results & Data Vital Signs (Past 12 Hours) Vital Signs Temp Pulse Pulse Resp BP BP Pulse Ox 06/27/25 07:32 36.6 C 94 H 18 109/62 100 06/27/25 04:14 36.6 C 99 H 18 108/66 98 06/27/25 02:20 96 H 06/27/25 01:11 36.7 C 18 96/62 L 100 06/27/25 00:46 115 H 20 88/74 L 95 06/26/25 23:29 119 H O2 Del Method 06/27/25 07:32 Room Air 06/27/25 04:14 Room Air 06/27/25 02:20 06/27/25 01:11 Room Air 06/27/25 00:46 Room Air 06/26/25 23:29 Laboratory Results 06/27/25 06/27/25 06/26/25 Range/Units 08:19 05:29 23:34 WBC 8.32 (4.8-10.8) K/ul RBC 4.64 L (4.70-6.10) M/uL Hgb 13.3 L (14.0-18.0) g/dl Hct 39.2 L (42.0-52.0) % MCV 84.5 (80.0-100.0) fL MCH 28.7 (25.0-34.0) pg MCHC 33.9 (32.0-36.0) g/dL RDW Std Deviation 39.5 (36.4-46.3) fL RDW Coeff of French 12.9 (11.5-14.5) % Plt Count 137 (130-400) K/uL MPV 11.0 (9.4-12.4) fL Immature Gran % (Auto) 0.4 % Neut % (Auto) 86.0 % Lymph % (Auto) 7.9 % [place] % (Auto) 5.4 % Eos % (Auto) 0.1 % Baso % (Auto) 0.2 % Neut # (Auto) 7.15 H (1.40-6.50) K/uL Lymph # (Auto) 0.66 L (1.20-3.40) K/uL [place] # (Auto) 0.45 (0.11-0.59) K/uL Eos # (Auto) 0.01 (0.00-0.50) K/uL Baso # (Auto) 0.02 (0.00-0.20) K/uL Immature Gran # (Auto) 0.03 (0.01-0.20) K/uL D-Dimer (0-500) ug/L FEU VBG pH 7.43 H (7.36-7.41) VBG pCO2 31 L (38-50) mmHg VBG pO2 25 mmHg VBG HCO3 21 mmol/L VBG O2 Saturation < 60.0 % VBG Base Excess -2.7 mEq/L Sodium 137 (136-145) mmol/L Potassium 4.4 D (3.5-5.1) mmol/L Chloride 109 H (98-107) mmol/L Carbon Dioxide 25 (21-32) mmol/L Anion Gap 3 (3-11) BUN 13 (6-23) mg/dl Creatinine 1.17 (0.6-1.4) mg/dl Est Cr Clr Drug Dosing 103.7 ml/min eGFR 89.28 BUN/Creatinine Ratio 11.1 (10-20) Glucose 94 (70-99(Fasting)) mg/dl Lactate (0.4-2.0) mmol/L Calcium 8.3 L (8.6-10.3) mg/dl Phosphorus 3.7 (2.5-4.9) mg/dl Magnesium 2.5 H (1.7-2.4) mg/dl Total Bilirubin 1.3 H (0.2-1.0) mg/dl Direct Bilirubin 0.3 H (0-0.2) mg/dl AST 15 (13-39) U/L ALT 10 (7-52) U/L Alkaline Phosphatase 40 (34-104) U/L Total Creatine Kinase (30-223) U/L Troponin I High Sens 3.0 (0-20) pg/ml Total Protein 6.0 D (6.0-8.3) gm/dl Albumin 3.7 (3.4-5.0) gm/dl Procalcitonin (0-0.5) ng/ml Urine Color Urine Appearance (Clear) Urine pH (4.5-7.5) Ur Specific [place] (1.000-1.030) Urine Protein (Negative) Urine Glucose (UA) (Negative) Urine Ketones (Negative) Urine Blood (Negative) Urine Nitrite (Negative) Urine Bilirubin (Negative) Urine Urobilinogen (Negative) Ur Leukocyte Esterase (Negative) Urine Comment Stl C. cayetanensis PCR Not Detected (NotDetected) Stool Rotavirus A PCR Not Detected (NotDetected) Stl Adenov F 40/41 PCR Not Detected (NotDetected) Stool Astrovirus (PCR) Not Detected (NotDetected) Stool Campylobacter PCR Not Detected (NotDetected) Stool Cryptosporidium PCR Not Detected (NotDetected) Stl E.coli Shiga Tox PCR Not Detected (NotDetected) Stl Enterotoxigenic E PCR Not Detected (NotDetected) Stool EPEC (PCR) Not Detected (NotDetected) Stool EAEC (PCR) Not Detected (NotDetected) Stl E. histolytica PCR Not Detected (NotDetected) Stool Giardia Lamblia PCR Not Detected (NotDetected) Stool Salmonella PCR Not Detected (NotDetected) Stool Sapovirus (PCR) Not Detected (NotDetected) Stl P. shigelloides PCR Not Detected (NotDetected) Stl Shigella/EIEC PCR Not Detected (NotDetected) St Y.enterocolitica PCR Not Detected (NotDetected) Stool Vibrio (PCR) Not Detected (NotDetected) Stl Vibrio cholerae PCR Not Detected (NotDetected) Stl Norovirus GI/GII PCR DETECTED A* (NotDetected) 06/26/25 06/26/25 06/26/25 Range/Units 21:46 21:06 19:55 WBC 9.02 (4.8-10.8) K/ul RBC 5.41 (4.70-6.10) M/uL Hgb 15.4 (14.0-18.0) g/dl Hct 45.5 (42.0-52.0) % MCV 84.1 (80.0-100.0) fL MCH 28.5 (25.0-34.0) pg MCHC 33.8 (32.0-36.0) g/dL RDW Std Deviation 38.7 (36.4-46.3) fL RDW Coeff of French 12.7 (11.5-14.5) % Plt Count 175 (130-400) K/uL MPV 11.3 (9.4-12.4) fL Immature Gran % (Auto) 0.2 % Neut % (Auto) 84.1 % Lymph % (Auto) 7.4 % [place] % (Auto) 6.1 % Eos % (Auto) 1.9 % Baso % (Auto) 0.3 % Neut # (Auto) 7.58 H (1.40-6.50) K/uL Lymph # (Auto) 0.67 L (1.20-3.40) K/uL [place] # (Auto) 0.55 (0.11-0.59) K/uL Eos # (Auto) 0.17 (0.00-0.50) K/uL Baso # (Auto) 0.03 (0.00-0.20) K/uL Immature Gran # (Auto) 0.02 (0.01-0.20) K/uL D-Dimer 430 (0-500) ug/L FEU VBG pH (7.36-7.41) VBG pCO2 (38-50) mmHg VBG pO2 mmHg VBG HCO3 mmol/L VBG O2 Saturation % VBG Base Excess mEq/L Sodium 137 (136-145) mmol/L Potassium 3.4 L (3.5-5.1) mmol/L Chloride 99 (98-107) mmol/L Carbon Dioxide 19 L (21-32) mmol/L Anion Gap 19 H (3-11) BUN 19 (6-23) mg/dl Creatinine 1.19 (0.6-1.4) mg/dl Est Cr Clr Drug Dosing 98.8 ml/min eGFR 87.48 BUN/Creatinine Ratio 16.0 (10-20) Glucose 121 H (70-99(Fasting)) mg/dl Lactate 1.2 4.3 H* (0.4-2.0) mmol/L Calcium 9.6 (8.6-10.3) mg/dl Phosphorus (2.5-4.9) mg/dl Magnesium 1.3 L (1.7-2.4) mg/dl Total Bilirubin 1.8 H (0.2-1.0) mg/dl Direct Bilirubin 0.3 H (0-0.2) mg/dl AST 17 (13-39) U/L ALT 14 (7-52) U/L Alkaline Phosphatase 58 (34-104) U/L Total Creatine Kinase 109 (30-223) U/L Troponin I High Sens 3.6 (0-20) pg/ml Total Protein 7.8 (6.0-8.3) gm/dl Albumin 4.6 (3.4-5.0) gm/dl Procalcitonin 0.07 (0-0.5) ng/ml Urine Color Yellow Urine Appearance Clear (Clear) Urine pH 5.5 (4.5-7.5) Ur Specific [place] 1.039 H (1.000-1.030) Urine Protein Negative (Negative) Urine Glucose (UA) Negative (Negative) Urine Ketones 2+ H (Negative) Urine Blood Negative (Negative) Urine Nitrite Negative (Negative) Urine Bilirubin Negative (Negative) Urine Urobilinogen Negative (Negative) Ur Leukocyte Esterase Negative (Negative) Urine Comment Stl C. cayetanensis PCR (NotDetected) Stool Rotavirus A PCR (NotDetected) Stl Adenov F 40/41 PCR (NotDetected) Stool Astrovirus (PCR) (NotDetected) Stool Campylobacter PCR (NotDetected) Stool Cryptosporidium PCR (NotDetected) Stl E.coli Shiga Tox PCR (NotDetected) Stl Enterotoxigenic E PCR (NotDetected) Stool EPEC (PCR) (NotDetected) Stool EAEC (PCR) (NotDetected) Stl E. histolytica PCR (NotDetected) Stool Giardia Lamblia PCR (NotDetected) Stool Salmonella PCR (NotDetected) Stool Sapovirus (PCR) (NotDetected) Stl P. shigelloides PCR (NotDetected) Stl Shigella/EIEC PCR (NotDetected) St Y.enterocolitica PCR (NotDetected) Stool Vibrio (PCR) (NotDetected) Stl Vibrio cholerae PCR (NotDetected) Stl Norovirus GI/GII PCR (NotDetected) (1) Abdominal pain Abdominal location: unspecified location Qualified Code(s): R10.9 - Unspecified abdominal pain (2) Diarrhea Diarrhea type: unspecified type Qualified Code(s): R19.7 - Diarrhea, unspecified (3) Vomiting Nausea presence: unspecified Vomiting type: unspecified Qualified Code(s): R11.10 - Vomiting, unspecified
[2025-06-27 10:25] LABS: Lipase 15.0 U/L (11-82)
--- NOTE | 2025-06-27 11:41 | Hospitalist Progress Note ---
Date of Service June 27, 2025 Assessment & Plan (1) Sepsis: Plan: 24-year-old male with no significant past medical history on Momaurilioro since about a year for obesity comes in because of nausea vomiting and diarrhea and abdominal pain. Sepsis-ruled out Acute gastroenteritis secondary to norovirus infection Patient presented to the hospital with nausea, vomiting and abdominal pain. CT abdomen pelvis with IV contrast subtle acute appendicitis is difficult to exclude. Enterocolitis with possible diarrheal disease Lactic acid elevated on admission; improved with IV hydration GI PCR positive for norovirus infection Continue IV fluids; will place on clear liquid diet and monitor as needed No surgical intervention Hypomagnesemia, hypokalemiarepleted Possible DC later in the day or a.m. depending on patient's clinical improvement Please note the above document was generated using voice recognition software. It may contain grammatical, syntax or spelling errors. Any formal questions or concerns about the content, text or information contained within the body of this dictation should be directly addressed to the provider for clarification Admission and Anticipated Discharge Date Admission Date: June 26, 2025 Subjective Patient seen and examined at bedside. He reports some abdominal discomfort; no pain or vomiting No fever or chills No significant events overnight Review of Systems Review of Systems: All systems reviewed & are unremarkable except as noted in Subjective Physical Exam Physical Exam: General- Comfortable; not in distress. Lungs- clear to auscultation no wheezing or crackles Heart- regular rhythm;tachycardia no murmur, no gallop. Abdomen- Soft, nontender. Extremities- no pretibial edema, no erythema seen Neuro- alert, oriented PERRL, no facial palsy; no dysarthria; moves extremities Results & Data Results & Data Vital Signs (Past 12 Hours) Vital Signs Temp Pulse Pulse Resp BP BP Pulse Ox 06/27/25 07:32 36.6 C 94 H 18 109/62 100 06/27/25 04:14 36.6 C 99 H 18 108/66 98 06/27/25 02:20 96 H 06/27/25 01:11 36.7 C 18 96/62 L 100 06/27/25 00:46 115 H 20 88/74 L 95 O2 Del Method 06/27/25 07:32 Room Air 06/27/25 04:14 Room Air 06/27/25 02:20 06/27/25 01:11 Room Air 06/27/25 00:46 Room Air
[2025-06-28 07:09] VITALS: BP 111/87; PULSE 77; TEMP 99; O2SAT 100
--- NOTE | 2025-06-28 10:30 | Discharge Summary ---
Date of Service June 28, 2025 Admission HPI Per Admitting Provider 24-year-old male with no significant past medical history on [facility] since about a year for obesity comes in because of nausea vomiting and diarrhea and abdominal pain. Seems around 5 PM started to have abdominal discomfort and had diarrhea and couple of episodes of vomiting. Patient states diarrhea since then subsided. Thinks he might have had fever. Currently having a lot of cramps and tightness in the abdomen. Currently denies any chest pain. Earlier he complained of some chest pain to the ER. States he is feeling short of breath. He was hypoxic and requiring oxygen in the ER initially. Was tachycardic with heart rates in 130s on presentation and systolic blood pressure was in 80s. Received 2 L of fluids. IV Zosyn was ordered. Initial lactic acid was 4.3 and repeat is 1.2. Patient is restless and tachycardic. He says he feels tight and asking for something to relax his muscles. Feeling crampy. Denies any headache. No earache or runny nose or sore throat. No cough. Micturating oka y. Denies any rash. Past medical history. As mentioned above. Past surgical history. Denies any surgeries. Social history. No smoking. No alcohol. No drug use. Family. Father had appendicitis. Denies any family history of heart disease or cancer. Admission Exam Per Admitting Provider General- Restless. Head- atraumatic Eyes- PERRL. ENT- oropharynx clear Neck- supple, no JVD. Lungs- clear to auscultation no wheezing or crackles Heart- regular rhythm;tachycardia no murmur, no gallop. Abdomen- normal bowel sounds, soft, periumbilical tenderness, guarding present, no rebound tenderness, no distension Extremities- no pretibial edema, no erythema seen Neuro- alert, oriented PERRL, no facial palsy; no dysarthria; moves extremities Principal Diagnosis Acute gastroenteritis secondary to norovirus infection Discharge Exam General- Comfortable; not in distress. Lungs- clear to auscultation no wheezing or crackles Heart- regular rhythm;tachycardia no murmur, no gallop. Abdomen- Soft, nontender. Extremities- no pretibial edema, no erythema seen Neuro- alert, oriented PERRL, no facial palsy; no dysarthria; moves extremities Discharge Data Allergies Allergy/AdvReac Type Severity Reaction Status Date / Time No Known Allergies Allergy Unverified 06/26/25 22:00 Consultations 06/26/25 22:53 Consult General Surgery Stat ED Decision to Admit Stat Ordered Studies 06/26/25 19:38 CT abd pelvis IV con only Stat 06/26/25 22:12 CT angio chest PE protocol Stat Hospital Course (1) Sepsis: 24-year-old male with no significant past medical history on Mounjaro since about a year for obesity comes in because of nausea vomiting and diarrhea and abdominal pain. Sepsis-ruled out Acute gastroenteritis secondary to norovirus infection Patient presented to the hospital with nausea, vomiting and abdominal pain. CT abdomen pelvis with IV contrast subtle acute appendicitis is difficult to exclude. Enterocolitis with possible diarrheal disease Lactic acid elevated on admission; improved with IV hydration GI PCR positive for norovirus infection During the hospitalization, patient was given IV fluids, was started on clear liquid diet which was gradually advanced to regular diet. Patient had resolution of diarrhea, nausea and vomiting and was tolerating regular diet at the time of the discharge. Patient recommended to follow-up with PCP after discharge. It was also discussed to monitor for signs and symptoms of appendicitis and seek immediate medical attention if he develops any signs or symptoms. He verbalized understanding. Please note the above document was generated using voice recognition software. It may contain grammatical, syntax or spelling errors. Any formal questions or concerns about the content, text or information contained within the body of this dictation should be directly addressed to the provider for clarification Total Time Total Time Spent Total Time Spent (In Minutes): 45 Total Time Includes: Examination of the Patient, Discharge Planning, Medication Reconciliation, Communication With Other Providers and Other Discharge Plan Discharge Items Patient Disposition: Home - Self-Care Reason For Visit: N/V,DIARRHEA, SEPSIS Discharge Diagnosis: Acute Gastroenteritis due to Norovirus Condition on Discharge: Fair Activity: Resume your previous activity Non-emergency contact: Primary Care Provider Call non-emergency contact if: you have any medication questions and your symptoms worsen Follow-up/Referrals: PCP,NO [Primary Care Provider] - Diet: Regular Addtl Attending Provider Instructions: You are admitted to the hospital due to acute gastroenteritis secondary to norovirus infection. Please keep yourself hydrated with Pedialyte as needed for diarrhea /nausea/vomiting. Please avoid dairy products for the next 2 weeks. Pending Studies at Discharge: No Stand-Alone Forms: [facility], Smoking Cessation Medications and DC Order Prescriptions: Continued Mounjaro 10 mg/0.5 mL Pen Injector 5 mg SUBCUT [id number] Rx Instructions: Friday and Friday Discharge Orders: Discharge Order (Routine); Ordered 06/28/25 Ordered By: Manfred Dennis Admission Data Admit Date/Time: 06/26/25 23:30 Attending Provider: Manfred Dennis Admit Provider: Dylan Wilks Primary Care Provider: PCP,NO Other Providers: [place]; Dylan Wilks
--- NOTE | 2025-07-01 13:15 | Electrocardiogram Report ---
Test Reason : Blood Pressure : */* mmHG Vent. Rate : 119 BPM Atrial Rate : 119 BPM P-R Int : 138 ms QRS Dur : 86 ms QT Int : 320 ms P-R-T Axes : 66 85 63 degrees QTcB Int : 450 ms Sinus tachycardia Otherwise normal ECG No previous ECGs available Confirmed by Rio Lopez ([id number]) on 07/01/2025 1:14:44 PM Referred By: REFERRED SELF Confirmed By: Rio Lopez
== END 2025-06-28 10:51 | disposition home or self-care (01) | DRG 392 ==
LOC: EDBD → ED 19:21 → 2E 23:30